=== PATIENT | female | born 1970 | race Hispanic/Latino ===

== ENCOUNTER 2023-02-13 15:40 | Inpatient (IN) | payer BC ==
[2023-02-13 16:25] VITALS: BMI 33.6
[2023-02-13] MEDS ORDERED: Morphine 2 MG/ML VIAL SLOW IVP PRN (17:00)
[2023-02-13] MEDS ORDERED: Dextrose 5% in Water 1,000 ML IV PRN (17:00)
[2023-02-13] MEDS ORDERED: Ipratropium/Albuterol 3 ML NEB NEB PRN (17:00)
[2023-02-13] MEDS ORDERED: Mag-Al 1200 mg/1200 mg/30 ML UDCUP PO PRN (17:00)
[2023-02-13] MEDS ORDERED: Calcium Carbonate 500 MG ChewTAB PO PRN (17:00)
[2023-02-13] MEDS ORDERED: Promethazine HCl 25 MG/ML VIAL IM PRN ×3 (17:00→20:18)
[2023-02-13] MEDS ORDERED: hydrALAZINE 20 MG/ML VIAL SLOW IVP PRN (17:00)
[2023-02-13] MEDS ORDERED: Morphine 4 MG/ML VIAL SLOW IVP PRN (17:00)
[2023-02-13] MEDS ORDERED: Dextrose 50% Abboject 50 ML SYRINGE SLOW IVP PRN (17:00)
[2023-02-13] MEDS: Sodium Chloride 0.9% 1,000 ML IV SCH (17:18)
[2023-02-13] MEDS: Ondansetron PF 4 MG/2 ML Vial IVP PRN ×2 (17:18→23:23)
[2023-02-13] MEDS: Famotidine/PF 20 mg/2ml Vial SLOW IVP SCH (19:07)
[2023-02-13] MEDS: Famotidine 20 MG TAB PO SCH (19:17)
[2023-02-13] MEDS ORDERED: diphenhydrAMINE 50 MG/ML VIAL IVP PRN ×2 (20:16→20:18)
[2023-02-13] MEDS ORDERED: FENTANYL 500 MCG/10 ML VIAL 2,000 MCG in Sodium Chloride 0.9% 60 ML IV PRN (20:16)
[2023-02-13] MEDS ORDERED: diphenhydrAMINE 25 MG CAP PO PRN ×2 (20:16→20:18)
[2023-02-13] MEDS ORDERED: Naloxone HCl 0.4 mg/ml Vial IV PRN ×2 (20:16→20:18)
[2023-02-13] MEDS ORDERED: Ondansetron PF 4 MG/2 ML Vial IVP PRN ×2 (20:16→20:18)
[2023-02-13] MEDS ORDERED: diphenhydrAMINE 50 MG/ML VIAL IM PRN ×2 (20:16→20:18)
[2023-02-13] MEDS ORDERED: Zolpidem Tartrate 5 MG TAB PO PRN ×2 (20:16→20:18)
[2023-02-13] MEDS ORDERED: Communication Order-Pharmacy FS SCH ×2 (20:30)
[2023-02-14] MEDS: Sodium Chloride 0.9% 1,000 ML IV SCH ×2 (02:24→08:30)
[2023-02-14] MEDS: Famotidine/PF 20 mg/2ml Vial SLOW IVP SCH (08:29)
[2023-02-14] MEDS: Famotidine 20 MG TAB PO SCH ×2 (08:29→20:09)
[2023-02-14] MEDS ORDERED: Bupivacaine/Epinephrine 0.25% 30 ML VIAL ONE (08:41)
[2023-02-14 08:47] LABS: Mean Corpuscular HGB CONC 32.5 g/dL (32.0-36.0); Mean Corpuscular Hemoglobin 29.1 pg (27.0-31.0); Mean Corpuscular Volume 89.5 fl (78.0-98.0); Mean Platelet Volume 8.2 fL (7.4-10.4); Platelet Count 209 10x3/uL (130-400); RBC Distribution Width 12.2 % (11.5-14.5); Red Blood Cell (RBC) Count 5.49 mill/uL (4.20-5.40)
[2023-02-14] MEDS ORDERED: Famotidine/PF 20 mg/2ml Vial ONE (08:52)
[2023-02-14] MEDS ORDERED: fentaNYL PF 100 MCG/2 ML SYRINGE ONE (08:52)
[2023-02-14] MEDS ORDERED: SUGAMMADEX SODIUM 200 MG/2 ML VIAL ONE (08:52)
[2023-02-14 08:55] LABS: ALT (SGPT) 95 U/L (8-55); AST (SGOT) 71 U/L (5-34); Albumin 3.6 g/dL (3.5-5.0); Alkaline Phosphatase 154 U/L (40-110); Anion Gap 13 mmol/L (10-20); BUN (Urea Nitrogen) 15 mg/dL (9.8-20.1); Bilirubin, Total 0.7 mg/dL (0.2-1.2); Calc. Creatinine Clearance 124 mL/min (70-130); Calcium 8.7 mg/dL (7.8-10.44); Carbon Dioxide 21 mmol/L (22-29); Chloride 108 mmol/L (98-107); Estimated GFR 95; Globulin 2.9 g/dL (2.4-3.5); Glucose 164 mg/dL (70-105); Potassium 3.9 mmol/L (3.5-5.1); Protein, Total 6.5 g/dL (6.0-8.3); Sodium 138 mmol/L (136-145)
[2023-02-14] MEDS ORDERED: Piperacillin/Tazobactam 3.375 GM VIAL ONE (08:58)
[2023-02-14] MEDS ORDERED: Sodium Chloride 0.9% 100 ML ONE (08:58)
[2023-02-14 09:00] LABS: Band 7 % (5-11); Lymphocytes 3 % (21-51); MDiff Complete? YES; Monocytes 9 % (0-10); Neutrophil 80 % (42-75); RBC Morphology Normal; Reactive Lymphocytes 1 % (0-10)
[2023-02-14] MEDS ORDERED: Bupivacaine HCl 0.5%/Epinephrine 1:200,000/PF 30 ml Vial ONE (09:00)
[2023-02-14 09:08] LABS: Lipase 1826 U/L (8-78)
[2023-02-14] MEDS ORDERED: GLYCOPYRROLATE/PF 0.2 MG/ML VIAL ONE (09:17)
[2023-02-14] MEDS ORDERED: Phenylephrine 10 MG/ML VIAL ONE (09:17)
[2023-02-14] MEDS ORDERED: Ondansetron PF 4 MG/2 ML Vial ONE (09:17)
[2023-02-14] MEDS ORDERED: Lidocaine 1% PF 5 ML VIAL ONE (09:17)
[2023-02-14] MEDS ORDERED: PROPOFOL 200 MG/20 ML VIAL ONE (09:17)
[2023-02-14] MEDS ORDERED: Rocuronium Bromide 10 MG/ML (10ML VIAL) ONE (09:17)
[2023-02-14] MEDS ORDERED: Dexamethasone 20 MG/5 ML VIAL ONE (09:17)
[2023-02-14] MEDS ORDERED: Ketorolac Tromethamine 30 MG/ML VIAL ONE (09:17)
[2023-02-14] MEDS ORDERED: NEOSTIGMINE 3 MG/3 ML SYR 3 MG/3 ML SYRINGE ONE (09:17)
[2023-02-14] MEDS ORDERED: Iopamidol 15 ML ONE (09:20)
[2023-02-14] MEDS ORDERED: HYDROmorphone 2 MG/ML VIAL SLOW IVP PRN (10:07)
[2023-02-14] MEDS ORDERED: Meperidine HCl/PF 25 MG/ML VIAL SLOW IVP PRN (10:07)
[2023-02-14] MEDS ORDERED: Promethazine HCl 25 MG/ML VIAL IM PRN (10:07)
[2023-02-14] MEDS ORDERED: Labetalol HCl 100 MG/20 ML VIAL ONE (10:39)
[2023-02-14] MEDS ORDERED: hydrALAZINE 20 MG/ML VIAL ONE (10:58)
[2023-02-14] MEDS ORDERED: traMADol HCl 50 MG TAB PO PRN (11:25)
[2023-02-14] MEDS ORDERED: fentaNYL 50 mcg/mL 1 mL Vial ONE (11:33)
[2023-02-14] MEDS ORDERED: Morphine 4 MG/ML VIAL SLOW IVP PRN (11:40)
[2023-02-14] MEDS ORDERED: Acetaminophen 500 MG TAB PO SCH (12:00)
[2023-02-14] MEDS: Ketorolac Tromethamine 30 MG/ML VIAL IVP SCH ×3 (12:21→23:47)
[2023-02-14] MEDS: Lactated Ringer's 1,000 ML IV SCH ×3 (12:22→23:47)
[2023-02-14] MEDS: Acetaminophen 500 MG TAB PO PRN (17:23)
[2023-02-15 00:08] LABS: Bacteria/HPF None Seen HPF (None Seen); Bilirubin Negative (Negative); Blood, Urine 1+ (Negative); CAUTI Indications for Culture Dysuria,urgency,freq; Clarity Clear (Clear); Glucose, Urine (Dipstick) Normal (Negative); Ketone, Urine Negative (Negative); Leukocyte 25 Leu/uL (Negative); Nitrite Negative (Negative); Protein, Urine (Dipstick) 20 mg/dL (Neg-Trace); RBC/HPF 0-3 HPF (0-3); Specific Gravity, Urine 1.018 (1.002-1.036); Squamous Epithelial 0-3 HPF (0-3); Urobilinogen Normal mg/dL (Less than 2)
[2023-02-15 00:09] LABS: Urine Culture Reflex No No
[2023-02-15] MEDS: Lactated Ringer's 1,000 ML IV SCH ×2 (05:22→13:17)
[2023-02-15] MEDS: Ketorolac Tromethamine 30 MG/ML VIAL IVP SCH ×4 (05:23→23:20)
[2023-02-15 07:42] LABS: Hemoglobin 13.6 g/dL (12.0-16.0); Mean Corpuscular HGB CONC 31.2 g/dL (32.0-36.0); Mean Corpuscular Hemoglobin 28.4 pg (27.0-31.0); Platelet Count 174 10x3/uL (130-400); RBC Distribution Width 12.2 % (11.5-14.5); Red Blood Cell (RBC) Count 4.77 mill/uL (4.20-5.40); White Blood Cell (WBC) Count 18.6 10x3/uL (4.8-10.8)
[2023-02-15 07:56] LABS: ALT (SGPT) 96 U/L (8-55); AST (SGOT) 112 U/L (5-34); Albumin 3.4 g/dL (3.5-5.0); Alkaline Phosphatase 124 U/L (40-110); Anion Gap 13 mmol/L (10-20); BUN (Urea Nitrogen) 9 mg/dL (9.8-20.1); Bilirubin, Total 1.2 mg/dL (0.2-1.2); Calc. Creatinine Clearance 141 mL/min (70-130); Calcium 8.8 mg/dL (7.8-10.44); Carbon Dioxide 24 mmol/L (22-29); Chloride 103 mmol/L (98-107); Estimated GFR 104; Glucose 133 mg/dL (70-105); Potassium 4.3 mmol/L (3.5-5.1); Protein, Total 6.4 g/dL (6.0-8.3); Sodium 136 mmol/L (136-145)
[2023-02-15 08:12] LABS: Lipase 1626 U/L (8-78)
[2023-02-15 08:15] LABS: Band 19 % (5-11); Lymphocytes 4 % (21-51); MDiff Complete? YES; Monocytes 6 % (0-10); Neutrophil 71 % (42-75); Platelet Morphology Comment Appears Adequate; RBC Morphology Normal
[2023-02-15] MEDS: Famotidine 20 MG TAB PO SCH ×2 (08:45→20:32)
[2023-02-15] MEDS: Polyethylene Glycol 3350 17 GM Packet PO SCH (08:45)
[2023-02-15] MEDS: Acetaminophen 500 MG TAB PO PRN (08:59)
[2023-02-15] MEDS ORDERED: Lisinopril 10 MG TAB PO SCH (12:00)
[2023-02-15] MEDS: Lisinopril 10 MG TAB PO SCH (20:31)
[2023-02-15] MEDS: Acetaminophen 500 MG TAB PO SCH (20:32)
[2023-02-15] MEDS: traMADol HCl 50 MG TAB PO SCH (20:33)
[2023-02-16] MEDS: Acetaminophen 500 MG TAB PO SCH ×2 (02:35→08:16)
[2023-02-16] MEDS: traMADol HCl 50 MG TAB PO SCH ×2 (02:35→08:15)
[2023-02-16] MEDS: Ketorolac Tromethamine 30 MG/ML VIAL IVP SCH ×2 (05:59→13:05)
[2023-02-16 08:05] LABS: ALT (SGPT) 75 U/L (8-55); AST (SGOT) 53 U/L (5-34); Albumin 3.1 g/dL (3.5-5.0); Alkaline Phosphatase 132 U/L (40-110); Anion Gap 11 mmol/L (10-20); BUN (Urea Nitrogen) 6 mg/dL (9.8-20.1); Bilirubin, Direct 0.6 mg/dL (0.1-0.3); Bilirubin, Total 1.2 mg/dL (0.2-1.2); Calc. Creatinine Clearance 160 mL/min (70-130); Calcium 8.7 mg/dL (7.8-10.44); Carbon Dioxide 28 mmol/L (22-29); Chloride 101 mmol/L (98-107); Estimated GFR 107; Glucose 109 mg/dL (70-105); Potassium 4.1 mmol/L (3.5-5.1); Protein, Total 6.1 g/dL (6.0-8.3); Sodium 136 mmol/L (136-145)
[2023-02-16] MEDS: Lisinopril 10 MG TAB PO SCH (08:14)
[2023-02-16] MEDS: Famotidine 20 MG TAB PO SCH (08:16)
[2023-02-16] MEDS: Polyethylene Glycol 3350 17 GM Packet PO SCH (08:16)
[2023-02-16] MEDS ORDERED: Lisinopril 10 MG TAB PO SCH (09:00)
[2023-02-16 13:06] VITALS: BP 118/81; TEMP 97.4
== END 2023-02-16 12:15 | disposition home or self-care (01) | DRG 417 ==
LOC: T4-B 16:07 → OBSVTOIN 17:01
PROVIDERS: ADMIT Specialist; ATTEND Surgery
PROC: 0FT44ZZ Resection of Gallbladder, Percutaneous Endoscopic Approach (ICD-10-PCS; principal; 2023-02-14)
PROC: BF131ZZ Fluoroscopy of Gallbladder and Bile Ducts using Low Osmolar Contrast (ICD-10-PCS; 2023-02-14)
DX: K80.00 Calculus of gallbladder with acute cholecystitis without obstruction (principal); K85.10 Biliary acute pancreatitis without necrosis or infection; I10 Essential (primary) hypertension; Z79.899 Other long term (current) drug therapy; Z98.890 Other specified postprocedural states; Z90.81 Acquired absence of spleen
CPT/HCPCS: 36415; 47532; 80048; 80053; 80076; 81001; 83690; 85025; 88304; C1889; J0360; J1100; J1611; J1650; J1885; J2270; J2272; J2370; J2405; J2543; J2704; J3010; J3490; J7050; J7120; Q9967; S0028

== ENCOUNTER 2023-02-17 18:27 | Inpatient (IN) | payer BC ==
[~2023-02-17 18:27] MED LIST: Iopamidol-370 76% 500 ML MDV (1 ML CHARGE) ONE
[2023-02-17 19:02] LABS: Hemoglobin 11.1 g/dL (12.0-16.0); Mean Corpuscular HGB CONC 32.9 g/dL (32.0-36.0); Mean Corpuscular Hemoglobin 30.1 pg (27.0-31.0); Mean Corpuscular Volume 91.5 fl (78.0-98.0); Mean Platelet Volume 7.8 fL (7.4-10.4); Platelet Count 162 10x3/uL (130-400); RBC Distribution Width 12.1 % (11.5-14.5); Red Blood Cell (RBC) Count 3.68 mill/uL (4.20-5.40)
[2023-02-17 19:18] LABS: ALT (SGPT) 43 U/L (8-55); AST (SGOT) 23 U/L (5-34); Alkaline Phosphatase 148 U/L (40-110); Anion Gap 13 mmol/L (10-20); BUN (Urea Nitrogen) 9 mg/dL (9.8-20.1); Bilirubin, Total 0.8 mg/dL (0.2-1.2); Calc. Creatinine Clearance 0 mL/min (70-130); Calcium 8.5 mg/dL (7.8-10.44); Carbon Dioxide 28 mmol/L (22-29); Chloride 94 mmol/L (98-107); Estimated GFR 106; Globulin 3.4 g/dL (2.4-3.5); Glucose 99 mg/dL (70-105); Potassium 3.7 mmol/L (3.5-5.1); Protein, Total 6.4 g/dL (6.0-8.3); Sodium 131 mmol/L (136-145)
[2023-02-17 19:26] LABS: Band 13 % (5-11); Eosinophils 1 % (0-10); Lymphocytes 5 % (21-51); MDiff Complete? YES; Monocytes 8 % (0-10); Neutrophil 73 % (42-75); Platelet Morphology Comment Appears Adequate; Polychromasia SLIGHT = 2-3 cells (100X) (0-2/hpf)
[2023-02-17 19:39] LABS: CKMB 0.6 ng/mL (0-6.6)
[2023-02-17] MEDS ORDERED: Cefepime 2 GM VIAL ONE (20:29)
[2023-02-17 21:11] LABS: Bacteria/HPF None Seen HPF (None Seen); Bilirubin Negative (Negative); Blood, Urine 1+ (Negative); Clarity Clear (Clear); Glucose, Urine (Dipstick) Normal (Negative); Ketone, Urine 40 mg/dL (Negative); Leukocyte Negative Leu/uL (Negative); Nitrite Negative (Negative); Protein, Urine (Dipstick) 20 mg/dL (Neg-Trace); Squamous Epithelial 0-3 HPF (0-3); Urobilinogen 6 mg/dL (Less than 2); WBC/HPF 0-3 HPF (0-3); pH, Urine 6.5 (5.0-9.0)
[2023-02-17 21:12] LABS: Specific Gravity, Urine Greater than 1.060 (1.002-1.036)
[2023-02-17] MEDS ORDERED: Vancomycin 1 GM/200 ML (FROZEN) BAG ONE (21:18)
[2023-02-17] MEDS ORDERED: Lisinopril 10 MG TAB ONE (21:40)
[2023-02-17 22:56] LABS: SARS-CoV-2 NAA Rapid Test Not Detected (NotDetected)
[2023-02-17] MEDS ORDERED: Ondansetron PF 4 MG/2 ML Vial IVP PRN (23:00)
[2023-02-17] MEDS ORDERED: Acetaminophen 325 MG TAB PO PRN (23:00)
[2023-02-17] MEDS ORDERED: Sodium Chloride 0.9% 1,000 ML IV SCH (23:00)
[2023-02-17] MEDS ORDERED: Meropenem 1 GM in Sodium Chloride 0.9% 100 ML IVPB SCH (23:15)
[2023-02-17 23:39] VITALS: BMI 38.8
[2023-02-18] MEDS ORDERED: Benzonatate 100 MG CAP PO PRN (00:05)
[2023-02-18] MEDS ORDERED: Electrolyte Replacement Protocol 1 EACH FS PRN (00:06)
[2023-02-18] MEDS ORDERED: Pantoprazole 40 MG VIAL IVP SCH ×2 (00:15→21:00)
[2023-02-18] MEDS ORDERED: Vancomycin 1 GM in Premix Bag 1 BAG IVPB SCH (00:15)
[2023-02-18] MEDS ORDERED: Sodium Chloride 0.9% 1,000 ML IV SCH (00:41)
[2023-02-18 00:47] LABS: BHCG - Serum Negative (NEGATIVE); Pregs Control Background? CLEAR/WHITE (CLR/WHITE); Pregs Control Bar Appear? YES (CONTROL BAR)
[2023-02-18] MEDS: Morphine 4 MG/ML VIAL SLOW IVP PRN ×2 (00:52→04:48)
[2023-02-18] MEDS ORDERED: Dextrose 5% in Water 1,000 ML IV PRN (00:56)
[2023-02-18] MEDS ORDERED: Dextrose 50% Abboject 50 ML SYRINGE SLOW IVP PRN (00:56)
[2023-02-18 01:26] LABS: Troponin I 0.078 ng/mL (< 0.028)
[2023-02-18] MEDS ORDERED: Albuterol 200 PUFF (6.7GM INHALER) INH SCH (02:30)
[2023-02-18 04:21] VITALS: TEMP 99.4
[2023-02-18] MEDS ORDERED: Vancomycin 1.5 GRAM/300 ML BAG 1.5 GM in Premix Bag 1 BAG IVPB SCH (05:00)
[2023-02-18] MEDS ORDERED: Meropenem 1 GM in Sodium Chloride 0.9% 100 ML IVPB SCH (08:00)
== END 2023-02-18 04:55 | disposition short-term general hospital (02) | DRG 871 ==
LOC: ERS 18:27 → IMCU/EMU 21:47
PROVIDERS: ADMIT Internal Medicine; ATTEND Internal Medicine
DX: A41.9 Sepsis, unspecified organism (principal); J18.9 Pneumonia, unspecified organism; K85.90 Acute pancreatitis without necrosis or infection, unspecified; J96.01 Acute respiratory failure with hypoxia; K85.91 Acute pancreatitis with uninfected necrosis, unspecified; J90 Pleural effusion, not elsewhere classified; J98.11 Atelectasis; E87.1 Hypo-osmolality and hyponatremia; I24.8 Other forms of acute ischemic heart disease; K86.89 Other specified diseases of pancreas; Z20.822 Contact with and (suspected) exposure to COVID-19; I10 Essential (primary) hypertension; Z98.890 Other specified postprocedural states; Z90.49 Acquired absence of other specified parts of digestive tract; Z90.81 Acquired absence of spleen; Z79.899 Other long term (current) drug therapy
CPT/HCPCS: 36415; 71045; 71275; 74177; 80053; 81003; 81015; 82553; 83605; 83690; 83880; 84484; 84703; 85025; 87040; 87086; 93005; 94760; C9113; J0692; J2185; J2270; J2405; J3370-JW; J3490; J7050; Q9967; U0002

== ENCOUNTER 2023-03-15 14:13 | Outpatient (CLI) | payer BC ==
[~2023-03-15 14:13] MED LIST changes: +Iopamidol 370 76% 100 ML VIAL ONE; -Iopamidol-370 76% 500 ML MDV (1 ML CHARGE) ONE
== END 2023-03-15 14:14 | disposition home or self-care (01) ==
LOC: BICCT 14:13
PROVIDERS: ATTEND Physician Assistant
DX: K85.91 Acute pancreatitis with uninfected necrosis, unspecified (principal)
CPT/HCPCS: 74177

== ENCOUNTER 2023-10-13 09:17 | Outpatient (CLI) | payer BC | END 2023-10-13 09:18 | disposition home or self-care (01) | LOC: BICCT 09:17 | PROVIDERS: ATTEND Physician Assistant Medical | DX: K85.91 Acute pancreatitis with uninfected necrosis, unspecified (principal); K62.89 Other specified diseases of anus and rectum; K22.10 Ulcer of esophagus without bleeding; L12.0 Bullous pemphigoid; K86.89 Other specified diseases of pancreas | CPT/HCPCS: 72193; 74170 ==